=== PATIENT | female | born 1980 | race Caucasian/White ===

== ENCOUNTER 2020-02-29 14:42 | Emergency (ER) | payer BC ==
[2020-02-29 16:01] LABS: ABSOLUTE BASOPHILS # (AUTO) 0.1 10^3/uL (0.0-0.2); ABSOLUTE EOSINOPHILS # (AUTO) 0.2 10^3/uL (0.0-0.6); ABSOLUTE LYMPHOCYTES (AUTO) 2.5 10^3/uL (0.5-4.7); ABSOLUTE MONOCYTES (AUTO) 0.7 10^3/uL (0.1-1.4); ABSOLUTE NEUT (AUTO) 7.3 10^3/uL (1.7-8.2); BASOPHILS % (AUTO) 0.8 % (0-2); HEMATOCRIT 40.7 % (36.0-47.0); HEMOGLOBIN 14.3 g/dL (12.0-15.5); LYMPHOCYTES % (AUTO) 23.1 % (13-45); MEAN CORPUSCULAR HEMOGLOBIN 31.4 pg (27.0-33.4); MEAN CORPUSCULAR HGB CONC 35.2 g/dL (32.0-36.0); MEAN CORPUSCULAR VOLUME 89 fl (80-97); MONOCYTES % (AUTO) 6.9 % (3-13); PLATELET COUNT 242 10^3/uL (150-450); RED BLOOD COUNT 4.55 10^6/uL (3.72-5.28); RED CELL DISTRIBUTION WIDTH 13.4 % (11.5-14.0); SEGMENTED NEUTROPHILS % (AUTO) 67.2 % (42-78); TOTAL CELLS COUNTED % (AUTO) 100 %; WHITE BLOOD COUNT 10.8 10^3/uL (4.0-10.5)
[2020-02-29 16:02] LABS: APPEARANCE,URINE SLIGHTLY-CLOUDY; BILIRUBIN,URINE NEGATIVE (NEGATIVE); COLOR,URINE YELLOW; GLUCOSE, URINE NEGATIVE (NEGATIVE); KETONES,URINE NEGATIVE (NEGATIVE); LEUKOCYTE ESTERASE,URINE NEGATIVE (NEGATIVE); NITRITE,URINE NEGATIVE (NEGATIVE); PROTEIN,URINE NEGATIVE (NEGATIVE); URINE SPECIFIC GRAVITY 1.019; UROBILINOGEN,URINE NEGATIVE mg/dL (<2.0)
--- NOTE | 2020-02-29 16:11 | ER Document Report ---
ED GI/ - General Mode of Arrival: Ambulatory Information source: Patient - HPI Patient complains to provider of: Pelvic pain. No: Vaginal discharge, Vomiting Onset: This morning Timing/Duration: Persistent Quality of pain: Sharp Pain Level: 2 Location: Pelvis Vaginal bleeding (Compared to normal period): None Sexual history: Active Associated symptoms: denies: Diarrhea, Dysuria, Fever, Loss of appetite, Nausea, Urinary hesitancy, Urinary frequency, Urinary retention, Urinary urgency, Vaginal discharge Exacerbated by: Denies Relieved by: Denies Similar symptoms previously: No Recently seen / treated by doctor: No - Related Data Home Medications: denies <JOSE PICHARDO - Last Filed: 02/29/20 17:07> <NATALIEMAGUE Tobi - Last Filed: 02/29/20 23:47> - General Chief Complaint: Lower Abdominal Pain Stated Complaint: LOWER RIGHT ABDOMINAL PAIN Time Seen by Provider: 02/29/20 16:01 Primary Care Provider: MEEK MCCLAIN MD [EMERITUS] - Follow up tomorrow Notes: Patient presents complaining of right lower pelvic pain that started at 930 this morning. Patient did take some Midol that improved the pain although it is not resolved. Patient denies any fever, nausea, vomiting or diarrhea. Patient denies any urinary symptoms. Patient denies any vaginal bleeding or discharge. Patient denies any concerns about STI. (JOSE PICHARDO) - Related Data Allergies/Adverse Reactions: No Known Allergies Allergy (Unverified 02/29/20 15:29) Past Medical History - General Information source: Patient - Social History Smoking Status: Never Smoker Chew tobacco use (# tins/day): No Frequency of alcohol use: Social Drug Abuse: None Occupation: Retail Lives with: Family Family History: Reviewed & Not Pertinent Patient has suicidal ideation: No Patient has homicidal ideation: No - Medical History Medical History: Negative Past Surgical History: Reports: Hx Tubal Ligation <JOSE PIHCARDO - Last Filed: 02/29/20 17:07> Review of Systems - Review of Systems Constitutional: No symptoms reported. denies: Fever, Recent illness EENT: No symptoms reported Cardiovascular: No symptoms reported Respiratory: No symptoms reported. denies: Cough Gastrointestinal: Abdominal pain. denies: Diarrhea, Nausea, Vomiting Genitourinary: No symptoms reported. denies: Dysuria, Flank pain Female Genitourinary: No symptoms reported. denies: , Vaginal discharge, Vaginal bleeding Musculoskeletal: No symptoms reported. denies: Back pain Skin: No symptoms reported Hematologic/Lymphatic: No symptoms reported Neurological/Psychological: No symptoms reported <JOSE PICHARDO - Last Filed: 02/29/20 17:07> Physical Exam - General General appearance: Appears well, Alert In distress: None - HEENT Head: Normocephalic, Atraumatic Eyes: Normal Conjunctiva: Normal Nasal: Normal Mouth/Lips: Normal Mucous membranes: Normal Neck: Normal, Supple - Respiratory Respiratory status: No respiratory distress Chest status: Nontender Breath sounds: Normal. No: Rales, Rhonchi, Stridor, Wheezing Chest palpation: Normal - Cardiovascular Rhythm: Regular Heart sounds: S1 appreciated, S2 appreciated Murmur: No - Abdominal Inspection: Normal Distension: No distension Bowel sounds: Normal Tenderness: Tender - right lower pelvic. No: McBurney's point, Meier's sign, Guarding Organomegaly: No organomegaly - Genitourinary External exam: Normal Speculum exam: Cervix closed Vaginal bleeding: None Bimanuel exam: Normal. No: Cervical motion tender, Adnexal mass, Adnexal tenderness - Back Back: Normal, Nontender. No: CVA tenderness - Extremities General upper extremity: Normal inspection, Normal strength General lower extremity: Normal inspection, Normal strength - Neurological Neuro grossly intact: Yes Cognition: Normal Benton Coma Scale Eye Opening: Spontaneous [place] Coma Scale Verbal: Oriented Per Coma Scale Motor: Obeys Commands Benton Coma Scale Total: 15 - Psychological Associated symptoms: Normal affect, Normal mood - Skin Skin Temperature: Warm Skin Moisture: Dry Skin Color: Normal <JOSE PICHARDO - Last Filed: 02/29/20 17:07> - Vital signs Vitals: Temp Pulse Resp BP Pulse Ox 98.5 F 89 18 111/61 100 02/29/20 14:49 02/29/20 14:49 02/29/20 14:49 02/29/20 14:49 02/29/20 14:49 Course - Laboratory Result Diagrams: 02/29/20 15:40 02/29/20 15:40 <JOSE PICHARDO - Last Filed: 02/29/20 17:07> - Laboratory Result Diagrams: 02/29/20 15:40 02/29/20 15:40 <MAGUE LINDO - Last Filed: 02/29/20 23:47> - Re-evaluation Re-evalutation: 02/29/20 16:52 Report and handoff given to Mague lindo [employer] ASSOCIATE (JOSE PICHARDO) 02/29/20 18:26 I was asked to follow-up with the patient's ultrasound results. Left ovary is not seen, but the patient is not having pain in that area. Patient has a septated right ovarian cyst measuring 1.8 x 1.8 x 1.4 cm. This is most likely the cause of her pain. No torsion noted. Patient states that she had her last menstrual cycle last week. I suspect I have a low suspicion for appendicitis. Patient does not appear ill. Discussed these findings with the patient. She will follow-up with Dr. Mcclain. Hematology shows a mild leukocytosis of 10,800. Chemistries and LFTs are unremarkable. Lipase is normal. Urinalysis is normal. Wet mount does not show evidence of bacterial vaginosis. Patient has no concern for gonorrhea or chlamydia. Awaiting results. She will be called if they are positive. Follow-up precautions were given. Verbal dis charge instructions were given to the patient. They verbalized understanding. They are stable for discharge. (MAGUE LINDO) - Vital Signs Vital signs: Temp Pulse Resp BP Pulse Ox 98.7 F 82 16 129/70 H 99 02/29/20 18:37 02/29/20 18:37 02/29/20 18:37 02/29/20 18:37 02/29/20 18:37 - Laboratory Laboratory results interpreted by me: 02/29/20 02/29/20 15:40 15:40 WBC 10.8 H Carbon Dioxide 31 H Total Bilirubin 1.7 H Discharge <JOSE PICHARDO - Last Filed: 02/29/20 17:07> <MAGUE LINDO - Last Filed: 02/29/20 23:47> - Discharge Clinical Impression: Abdominal pain Qualifiers: Abdominal location: right lower quadrant Qualified Code(s): R10.31 - Right lower quadrant pain Ovarian cyst Qualifiers: Laterality: right Qualified Code(s): N83.201 - Unspecified ovarian cyst, right side Condition: Stable Disposition: HOME, SELF-CARE Additional Instructions: Today been diagnosed with an ovarian cyst. These typically occur in the middle of your typical menstrual cycle. The pain should last for no more than 3-4 days. For your pain: Take ibuprofen 600 mg and acetaminophen 1000 mg every 6 hours together as needed for pain. Please be very careful about using the oral morphine and only use this for severe pain. Please follow-up with your [facility] regarding today's visit. If you have multiple recurrent cyst that continue to cause you pain like this, you may require hormone therapy such as oral control pills to prevent recurrence of the same. Return if you develop fever, nausea, vomiting, worsening abdominal pain, pass out, or have any other symptoms that are worrisome to you. Forms: Return to Work Referrals: MEEK MCCLAIN MD [EMERITUS] - Follow up tomorrow
[2020-02-29 16:17] LABS: ALBUMIN 4.6 g/dL (3.5-5.0); ALKALINE PHOSPHATASE 80 U/L (38-126); ANION GAP 6 (5-19); ASPARTATE AMINO TRANSFERASE 23 U/L (14-36); BILIRUBIN,TOTAL 1.7 mg/dL (0.2-1.3); BLOOD UREA NITROGEN 14 mg/dL (7-20); CALCIUM 9.2 mg/dL (8.4-10.2); CARBON DIOXIDE 31 mmol/L (22-30); CHLORIDE 102 mmol/L (98-107); GLUCOSE 85 mg/dL (75-110); POTASSIUM 3.7 mmol/L (3.6-5.0); TOTAL PROTEIN 7.6 g/dL (6.3-8.2)
[2020-02-29 17:15] LABS: EPITHELIALS (WET MOUNT) 3+ EPITHELIALS SEEN; T.VAGINALIS (WET MOUNT) NO TRICHOMONAS SEEN; WBCS (WET MOUNT) 1+ WBCS SEEN; YEAST (WET MOUNT) NO YEAST SEEN
--- NOTE | 2020-02-29 17:35 | RADIOLOGY REPORT (SQ) ---
EXAM DESCRIPTION: U/S NON OB PEL TV W/DOPPLER IMAGES COMPLETED DATE/TIME: 02/29/2020 5:14 pm REASON FOR STUDY: RLQ pain COMPARISON: None. TECHNIQUE: Dynamic and static grayscale images acquired of the pelvis via transvaginal approach and recorded on PACS. Additional selected color Doppler and spectral images recorded. LIMITATIONS: None. FINDINGS: UTERUS: Heterogenous echotexture. Contour normal. No mass. ENDOMETRIAL STRIPE: Heterogenous appearance. No focal or generalized thickening. No masses. CERVIX: No nabothian cysts. RIGHT OVARY AND DOPPLER: Normal size. A septated 1.8 x 1.8 x 1.4 cm cyst. No worrisome masses. Norm al arterial vascular flow without evidence for torsion. LEFT OVARY AND DOPPLER: Not visualized due to overlying bowel gas. FREE FLUID: None noted. OTHER: No other significant finding. MEASUREMENTS: UTERUS: 7.2 x 4.3 x 4.9 cm ENDOMETRIAL STRIPE: 8.0 mm RIGHT OVARY: 2.2 x 1.5 x 2.1 cm. LEFT OVARY: Not visualized. IMPRESSION: 1. The left ovary is not visualized due to overlying bowel gas. 2. Septated right ovarian cyst. 3. Heterogenous echotexture to the uterus and endometrium. TECHNICAL DOCUMENTATION: JOB ID: [id number] 2010 [employer]- All Rights Reserved Rev Reading location - IP/workstation name: [email or web address]
[2020-02-29 18:38] VITALS: BP 129/70
[2020-02-29 18:46] LABS: CHLAM PCR NOT DETECTED (NOT DETECT)
== END 2020-02-29 18:38 | disposition home or self-care (01) ==
LOC: ER 14:42
DX: N83.201 Unspecified ovarian cyst, right side (principal); R10.31 Right lower quadrant pain; R10.2 Pelvic and perineal pain; Z98.51 Tubal ligation status
CPT/HCPCS: 36415; 76830; 80053; 81001; 81025; 83690; 85025; 87210; 87491; 87591; 93976; 99284